=== PATIENT | male | born 1965 | race Caucasian/White ===

== ENCOUNTER → 2021-10-24 | Outpatient (CLI) | payer OTHER ==
[~2021-10-24] MED LIST: ALBU90OI INH; AYR SALINE NASA; Augmentin 875-1 EACH PO; IBUP600 PO; Kristalose20 GM PO; LISHYD2025 PO; Lisinopril2.5 MG; MOTION RELIEF25 MG PO; Monodox100 MG PO; Norco 5-325 Ta1 EACH PO; Prilosec Otc20 MG PO; SIMV40 PO; SPACE CHAMBER1 EACH MC; [UNRECOGNIZED DRUG - CODE]; [UNRECOGNIZED DRUG - OTHER]
[2021-10-25 14:17] LABS: Microalb/Creat Ratio UR, Rand 58.288 mg/g (0.000-30.000); Microalbumin, Random Urine 64.7 mg/L (0.000-20.000)
== END | disposition home or self-care (01) ==
LOC: LAB 19:00 → LAB SHORT 19:00 → LAB FUT 09-28 07:20
PROVIDERS: Family Medicine
DX: E11.65 Type 2 diabetes mellitus with hyperglycemia (principal)
CPT/HCPCS: 82043; 82570